=== PATIENT | male | born 1950 | race Caucasian/White ===

== ENCOUNTER 2019-09-23 10:26 | Inpatient (IN) ==
[2019-09-23] MEDS ORDERED: Ipratropium/Albuterol Neb 3 ML ONE (10:46)
[2019-09-23] MEDS ORDERED: methylPREDNISolone 125 MG/2 ML VIAL IVP ONE (10:49)
[2019-09-23 11:08] LABS: Basophils % 0.2 %; Eosinophils # 0.1 K/mcL (0.0-0.6); Eosinophils % 0.9 %; Hematocrit 39.8 % (37.5-50.1); Hemoglobin 11.8 g/dL (12.9-16.9); Immature Granulocytes % 0.5 % (0-4); Lymphocytes % 6.9 %; Mean Corpuscular HGB Conc 29.6 g/dL (31.6-35.5); Mean Corpuscular Hemoglobin 26.8 pg (28.0-33.3); Mean Corpuscular Volume 90.2 fL (83.0-100.0); Mean Platelet Volume 9.9 fL (9.4-12.4); Monocytes % 6.7 %; Platelet Count 210 K/mcL (140-400); Red Blood Count 4.41 M/mcL (4.19-5.50); Red Cell Distribution Width 14.6 % (11.5-14.5); Segmented Neutrophils % 84.8 %; White Blood Count 14.4 K/mcL (4.3-11.1)
[2019-09-23 11:10] LABS: INR 1.1
[2019-09-23 11:10] LABS: ABG Base Excess 9 mEq/L (-2 to 3); ABG HCO3 38 mEq/L (21-27); ABG Oxygen Saturation 90 % (95-98); ABG PCO2 78 mmHg (35-45); ABG PO2 68 mmHg (85-104); ABG TCO2 41 mEq/L (20-26)
[2019-09-23 11:16] LABS: Neutrophils # 12.2 K/mcL (1.6-8.9)
[2019-09-23] MEDS ORDERED: levoFLOXacin 750 MG/150 ML 750 MG/150 ML BAG IVPB ONE (11:34)
[2019-09-23 11:36] LABS: Alanine Aminotransferase 10 Units/L (7-52); Albumin 3.7 g/dL (3.5-5.7); Albumin/Globulin Ratio 1.4 (1.1-2.2); Alkaline Phosphatase 75 Units/L (34-104); Aspartate Amino Transferase 12 Units/L (13-39); BUN/Creatinine Ratio 11 (6-26); Bilirubin,Total 0.6 mg/dL (0.3-1.0); Blood Urea Nitrogen 9 mg/dL (8-23); Calcium 8.8 mg/dL (8.6-10.3); Carbon Dioxide 42 mEq/L (23-29); Chloride 87 mEq/L (98-107); Creatine Kinase 90 Units/L (30-223); Globulin 2.7 g/dL (2.4-3.5); Glucose 137 mg/dL (70-105); Osmolality,Calculated 277 (280-300); Potassium 4.3 mEq/L (3.5-5.1); Sodium 133 mEq/L (136-145); Total Protein 6.4 g/dL (6.4-8.9); Troponin I < 0.03 ng/mL (< 0.04); eGFR For African Americans > 60 (> 60); eGFR For Non-African Americans > 60 (> 60)
[2019-09-23 12:50] LABS: VBG HCO3 39 mEq/L (21-27); VBG PCO2 78 mmHg (41-51); VBG PH 7.31 pH Units (7.32-7.42); VBG PO2 30 mmHg (25-50)
[2019-09-23 15:08] LABS: VBG HCO3 38 mEq/L (21-27); VBG PCO2 71 mmHg (41-51); VBG PH 7.34 pH Units (7.32-7.42); VBG PO2 26 mmHg (25-50)
[2019-09-23] MEDS: Ipratropium/Albuterol Neb 3 ML IH SCH ×2 (15:43→20:44)
[2019-09-23] MEDS: *HR* OxyCODONE Immed Rel 15 MG TABLET PO PRN (16:16)
[2019-09-23] MEDS: MethylPREDNISolone 40 MG/ML VIAL IVP SCH (17:33)
[2019-09-23] MEDS: Ondansetron ODT 4 MG TAB.RAPDIS PO PRN (17:33)
[2019-09-24] MEDS: Ipratropium/Albuterol Neb 3 ML IH SCH ×6 (01:23→20:01)
[2019-09-24] MEDS: MethylPREDNISolone 40 MG/ML VIAL IVP SCH ×4 (05:33→17:00)
[2019-09-24 08:18] LABS: Hematocrit 34.6 % (37.5-50.1); Hemoglobin 10.5 g/dL (12.9-16.9); Immature Granulocytes % 0.6 % (0-4); Lymphocytes # 0.6 K/mcL (0.6-4.6); Lymphocytes % 4.9 %; Mean Corpuscular HGB Conc 30.3 g/dL (31.6-35.5); Mean Corpuscular Hemoglobin 26.9 pg (28.0-33.3); Mean Corpuscular Volume 88.5 fL (83.0-100.0); Mean Platelet Volume 9.6 fL (9.4-12.4); Monocytes # 0.3 K/mcL (0.0-1.3); Platelet Count 180 K/mcL (140-400); Red Blood Count 3.91 M/mcL (4.19-5.50); Red Cell Distribution Width 14.6 % (11.5-14.5); Segmented Neutrophils % 91.5 %; White Blood Count 11.3 K/mcL (4.3-11.1)
[2019-09-24 08:20] LABS: Neutrophils # 10.3 K/mcL (1.6-8.9)
[2019-09-24] MEDS: Ondansetron ODT 4 MG TAB.RAPDIS PO PRN ×2 (09:17→16:59)
[2019-09-24] MEDS: Furosemide 40 MG TABLET PO SCH (09:18)
[2019-09-24] MEDS: levoFLOXacin 750 MG/150 ML 750 MG/150 ML BAG IVPB SCH (09:18)
[2019-09-24] MEDS: *HR* OxyCODONE Immed Rel 15 MG TABLET PO PRN ×3 (09:21→16:59)
[2019-09-24 09:34] LABS: Alanine Aminotransferase 8 Units/L (7-52); Albumin 3.2 g/dL (3.5-5.7); Albumin/Globulin Ratio 1.5 (1.1-2.2); Alkaline Phosphatase 60 Units/L (34-104); Aspartate Amino Transferase 9 Units/L (13-39); BUN/Creatinine Ratio 14 (6-26); Bilirubin,Total 0.3 mg/dL (0.3-1.0); Blood Urea Nitrogen 12 mg/dL (8-23); Calcium 8.3 mg/dL (8.6-10.3); Carbon Dioxide 40 mEq/L (23-29); Chloride 89 mEq/L (98-107); Globulin 2.2 g/dL (2.4-3.5); Glucose 141 mg/dL (70-105); Osmolality,Calculated 276 (280-300); Potassium 4.2 mEq/L (3.5-5.1); Sodium 132 mEq/L (136-145); Total Protein 5.4 g/dL (6.4-8.9); eGFR For African Americans > 60 (> 60); eGFR For Non-African Americans > 60 (> 60)
[2019-09-24] MEDS: Budesonide Neb 0.5 MG/2 ML IH SCH (11:53)
[2019-09-24] MEDS: Tiotropium 18 MCG inhalation IH SCH (11:54)
[2019-09-24 18:32] LABS: ABG Base Excess 9 mEq/L (-2 to 3); ABG HCO3 36 mEq/L (21-27); ABG Oxygen Saturation 86 % (95-98); ABG PCO2 55 mmHg (35-45); ABG PH 7.42 pH Units (7.32-7.45); ABG PO2 52 mmHg (85-104); ABG TCO2 38 mEq/L (20-26)
[2019-09-25] MEDS: MethylPREDNISolone 40 MG/ML VIAL IVP SCH ×4 (00:23→18:26)
[2019-09-25] MEDS: Ipratropium/Albuterol Neb 3 ML IH SCH ×7 (00:23→23:49)
[2019-09-25] MEDS: Melatonin 3 MG TABLET PO PRN ×2 (00:42→20:42)
[2019-09-25] MEDS: *HR* OxyCODONE Immed Rel 15 MG TABLET PO PRN ×3 (00:53→14:34)
[2019-09-25] MEDS: Ondansetron ODT 4 MG TAB.RAPDIS PO PRN ×3 (00:53→14:35)
[2019-09-25] MEDS: levoFLOXacin 750 MG/150 ML 750 MG/150 ML BAG IVPB SCH (09:01)
[2019-09-25] MEDS: Furosemide 40 MG TABLET PO SCH (09:03)
[2019-09-25] MEDS: Budesonide Neb 0.5 MG/2 ML IH SCH (09:38)
[2019-09-25] MEDS: Tiotropium 18 MCG inhalation IH SCH (09:39)
[2019-09-25 10:39] LABS: Basophils % 0.1 %; Hematocrit 36.6 % (37.5-50.1); Hemoglobin 11.4 g/dL (12.9-16.9); Immature Granulocytes % 0.4 % (0-4); Lymphocytes # 0.6 K/mcL (0.6-4.6); Lymphocytes % 3.6 %; Mean Corpuscular HGB Conc 31.1 g/dL (31.6-35.5); Mean Corpuscular Hemoglobin 26.9 pg (28.0-33.3); Mean Corpuscular Volume 86.3 fL (83.0-100.0); Mean Platelet Volume 9.7 fL (9.4-12.4); Monocytes # 0.6 K/mcL (0.0-1.3); Monocytes % 3.8 %; Neutrophils # 14.5 K/mcL (1.6-8.9); Platelet Count 239 K/mcL (140-400); Red Blood Count 4.24 M/mcL (4.19-5.50); Red Cell Distribution Width 15.3 % (11.5-14.5); Segmented Neutrophils % 92.1 %; White Blood Count 15.7 K/mcL (4.3-11.1)
[2019-09-25 11:00] LABS: BUN/Creatinine Ratio 18 (6-26); Blood Urea Nitrogen 22 mg/dL (8-23); Calcium 8.4 mg/dL (8.6-10.3); Carbon Dioxide 36 mEq/L (23-29); Chloride 90 mEq/L (98-107); Glucose 154 mg/dL (70-105); Osmolality,Calculated 280 (280-300); Potassium 4.4 mEq/L (3.5-5.1); Sodium 132 mEq/L (136-145); eGFR For African Americans > 60 (> 60); eGFR For Non-African Americans 59 (> 60)
[2019-09-26] MEDS: *HR* OxyCODONE Immed Rel 15 MG TABLET PO PRN ×3 (00:07→15:03)
[2019-09-26] MEDS: MethylPREDNISolone 40 MG/ML VIAL IVP SCH ×3 (00:07→15:03)
[2019-09-26] MEDS: Ondansetron ODT 4 MG TAB.RAPDIS PO PRN ×3 (00:08→12:33)
[2019-09-26] MEDS: Ipratropium/Albuterol Neb 3 ML IH SCH ×3 (04:06→12:16)
[2019-09-26 07:18] VITALS: BP 116/74
[2019-09-26] MEDS: Furosemide 40 MG TABLET PO SCH (07:19)
[2019-09-26] MEDS: levoFLOXacin 750 MG/150 ML 750 MG/150 ML BAG IVPB SCH (07:20)
[2019-09-26] MEDS ORDERED: tiZANidine 4 MG TABLET PO PRN (09:32)
[2019-09-26] MEDS: Tiotropium 18 MCG inhalation IH SCH (09:57)
[2019-09-26] MEDS: Budesonide Neb 0.5 MG/2 ML IH SCH (09:58)
== END 2019-09-26 15:20 | disposition home or self-care (01) | DRG 189 ==
LOC: SUPCPDRO → EMEROOGRE 10:26 → INPGRE 10:26
PROVIDERS: ADMIT Family Medicine; ATTEND Family Medicine